=== PATIENT | male | born 1975 | race Asian ===

== ENCOUNTER 2017-03-05 22:05 | Emergency (ER) | payer MEDICAID ==
[2017-03-05 22:24] VITALS: BP 118/75
[2017-03-05] MEDS ORDERED: TETANUS/DIPHTHERIA/PERTUSSIS 0.5 ML SYRINGE IM ONE ×2 (22:44→22:46)
--- NOTE | 2017-03-05 22:52 | ED Physician Documentation ---
PD HPI LOWER EXT INJURY - Stated complaint Stated Complaint: RT LE PAIN - Chief complaint Chief Complaint: Ext Problem - History obtained from History obtained from: Patient - History of Present Illness PD HPI LOW EXT INJURY LOCATION: Right (2 days ago cut himself on a broken mirror hand has a laceration that was repaired at [facility]. She doesn't know when his last tetanus shot was and he was not updated at the time. He complains mostly of swelling distal to the wound and being insensate distal to the wound.) Review of Systems Constitutional: denies: Fever, Chills Cardiac: denies: Chest pain / pressure, Palpitations Respiratory: denies: Dyspnea, Cough PD PAST MEDICAL HISTORY - Past Medical History GI: GERD Musculoskeletal: Chronic back pain - Past Surgical History Past Surgical History: No - Present Medications Home Medications: Ambulatory Orders Medication Instructions Recorded Confirmed Oxycodone HCl/Acetaminophen 1 - 2 each PO Q6H PRN #14 tablet 11/25/14 06/17/16 [Percocet 5-325 mg Tablet] Gabapentin 300 mg PO TID 09/29/15 06/17/16 Methocarbamol 500 mg PO DAILY 09/29/15 06/17/16 Omeprazole 20 mg PO DAILY 06/17/16 06/17/16 Cephalexin [Keflex] 500 mg PO QID #40 capsule 03/05/17 - Allergies Allergies/Adverse Reactions: Allergies Allergy/AdvReac Type Severity Reaction Status Date / Time No Known Drug Allergies Allergy Verified 06/17/16 20:05 - Social History Does the pt smoke?: Yes Smoking Status: Current every day smoker Does the pt drink ETOH?: No Does the pt have substance abuse?: Yes - Immunizations Immunizations are current?: No - POLST Patient has POLST: No PD ED PE NORMAL - Vitals Vital signs reviewed: Yes - General General: Alert and oriented X 3, No acute distress - Neuro Neuro: Alert and oriented X 3, Normal speech - Psych Psych: Normal mood, Normal affect PD ED PE EXPANDED - Extremities SHASHA LE visual: 1 - laceration (3 cm sutured laceration) 2 - swelling (not completely insensate but pressure only in this area) 3 - swelling (normal motor function) Results - Vitals Vitals: Vital Signs - 24 hr 03/05/17 22:20 Temperature 37 C Heart Rate 67 Respiratory 17 Rate Blood Pressure 118/75 O2 Saturation 97 Oxygen O2 Source Room air PD MEDICAL DECISION MAKING - ED course ED course: He presents with a laceration of the leg with what looks like a saphenous nerve injury. The case was discussed by phone with Dr. Vargas, the on-call orthopedist who felt that this is not merit operative intervention and likely recover function on his own especially since there is no motor component. Tetanus was updated. Departure - Departure Disposition: Home, Self Care Clinical Impression: Nerve injury Leg laceration Qualifiers: Encounter type: initial encounter Laterality: right Qualified Code(s): S81.811A - Laceration without foreign body, right lower leg, initial encounter Condition: Good Record reviewed to determine appropriate education?: Yes Instructions: ED Laceration Ext Sutr Stap Tape Prescriptions: Cephalexin [Keflex] 500 mg PO QID #40 capsule Comments: Call your doctor to arrange a follow up appointment. Make the next available appointment. In the interim return anytime if worse or if new symptoms develop. Wash the wound briefly but in general keep it dry and covered. Come back for any signs of infection which would include: Redness, swelling, drainage, increased pain, or fevers. Followup with your doctor in 9 days for suture removal.
[2017-03-05] MEDS ORDERED: CEPHALEXIN 250 MG CAPSULE PO STA (22:54)
[2017-03-05] MEDS ORDERED: CEPHALEXIN 250 MG CAPSULE PO ONE (22:55)
== END 2017-03-05 23:01 | disposition home or self-care (01) ==
LOC: ED 22:05
DX: S84.80 Injury of other nerves at lower leg level (principal); S81.811D Laceration without foreign body, right lower leg, subsequent encounter; W45.8XXD Other foreign body or object entering through skin, subsequent encounter; Z23 Encounter for immunization; F17.200 Nicotine dependence, unspecified, uncomplicated
CPT/HCPCS: 90471; 90715; 99283; A9270

== ENCOUNTER 2017-03-11 20:10 | Emergency (ER) | payer MEDICAID | END 2017-03-11 20:49 | disposition home or self-care (01) | DX: S81.811A Laceration without foreign body, right lower leg, initial encounter (principal); X58.XXXA Exposure to other specified factors, initial encounter; Y92.410 Unspecified street and highway as the place of occurrence of the external cause; F17.200 Nicotine dependence, unspecified, uncomplicated ==

== ENCOUNTER 2017-03-19 00:58 | Emergency (ER) | payer MEDICAID ==
[2017-03-19 01:04] VITALS: BP 100/61
--- NOTE | 2017-03-19 01:27 | ED Physician Documentation ---
PD HPI WOUND RECHECK - Stated complaint Stated Complaint: RT LEG WOUND - Chief complaint Chief Complaint: Laceration - Histroy obtained from History obtained from: Patient - History of Present Illness Location: Right Lower Extremity (medial calf) Timing - onset: How many weeks ago (3) Pain level max: 0 Pain level now: 0 Associated symptoms: Redness, Swelling, Drainage (clear, yellow). No: Fever Similar symptoms before: Diagnosis (laceration) Recently seen: Emergency Dept (x2 for same) Review of Systems Constitutional: denies: Fever, Chills GI: denies: Nausea, Vomiting, Diarrhea Skin: denies: Rash Musculoskeletal: denies: Neck pain, Back pain Neurologic: denies: Headache PD PAST MEDICAL HISTORY - Past Medical History Past Medical History: Yes GI: GERD Musculoskeletal: Chronic back pain - Past Surgical History Past Surgical History: No - Present Medications Home Medications: Ambulatory Orders Medication Instructions Recorded Confirmed Oxycodone HCl/Acetaminophen 1 - 2 each PO Q6H PRN #14 tablet 11/25/14 06/17/16 [Percocet 5-325 mg Tablet] Gabapentin 300 mg PO TID 09/29/15 06/17/16 Methocarbamol 500 mg PO DAILY 09/29/15 06/17/16 Omeprazole 20 mg PO DAILY 06/17/16 06/17/16 Cephalexin [Keflex] 500 mg PO QID #40 capsule 03/05/17 - Allergies Allergies/Adverse Reactions: Allergies Allergy/AdvReac Type Severity Reaction Status Date / Time No Known Drug Allergies Allergy Verified 03/19/17 01:01 - Living Situation Living Situation: reports: With family Living Arrangement: reports: At home - Social History Does the pt smoke?: Yes Smoking Status: Current every day smoker Does the pt drink ETOH?: No Does the pt have substance abuse?: Yes - Immunizations Immunizations are current?: No - POLST Patient has POLST: No PD ED PE NORMAL - Vitals Vital signs reviewed: Yes - General General: Alert and oriented X 3, No acute distress - Derm Derm: Warm and dry - Extremities Extremities: Other (medial R calf - mild wound dehiscence with serosanguinous drainage. no cellulitis. no purulence. no abscess. ) - Neuro Neuro: Alert and oriented X 3 - Psych Psych: Normal mood, Normal affect Results - Vitals Vitals: Vital Signs - 24 hr 03/19/17 01:01 Temperature 36.0 C L Heart Rate 59 L Respiratory 16 Rate Blood Pressure 100/61 O2 Saturation 97 Oxygen O2 Source Room air PD MEDICAL DECISION MAKING - ED course Complexity details: reviewed old records, considered differential, d/w patient, d/w family ED course: Patient is a 41-year-old male with a slowly healing wound to the right medial calf. Serosanguineous drainage. No evidence of infection. Mepitel was placed over the wound and dressing applied over this recommend he follow-up with his doctor to be referred to wound care as this may have to heal by secondary intention. Patient and family counseled regarding signs and symptoms for which I believe and urgent re-evaluation would be necessary. Patient with good understanding of and agreement to plan and is comfortable going home at this time This document was made in part using voice recognition software. While efforts are made to proofread this document, sound alike and grammatical errors may occur. Departure - Departure Disposition: 01 Home, Self Care Clinical Impression: Encounter for wound re-check Condition: Good Instructions: ED Wound Care Follow-Up: Jaye Bang ARNP [Primary Care Provider] - Within 3 Days Comments: Ask Jaye Bang for a referral to the [facility] for wound care. Change the gauze whenever it becomes wet. Let it dry to the air whenever possible. Leave the mepitel for 1 week. Return if you worsen. Discharge Date/Time: 03/19/17 01:35
== END 2017-03-19 01:35 | disposition home or self-care (01) ==
LOC: ED 00:58
DX: T81.33XA Disruption of traumatic injury wound repair, initial encounter (principal); K21.9 Gastro-esophageal reflux disease without esophagitis; F17.200 Nicotine dependence, unspecified, uncomplicated
CPT/HCPCS: 99282; 99283

== ENCOUNTER 2017-08-20 02:00 | Emergency (ER) | payer MEDICAID ==
--- NOTE | 2017-08-20 02:46 | ED Physician Documentation ---
PD HPI HEENT - Stated complaint Stated Complaint: DENTAL PAIN,SWELLING - Chief complaint Chief Complaint: Heent - History obtained from History obtained from: Patient - History of Present Illness Timing - onset: Yesterday Timing - details: Gradual onset Pain level now: 8 Location: Tooth Improves: Nothing Worsens: Other (palpation) Associated symptoms: Facial swelling. No: Fever, Unable to swallow Recently seen: Other (dentist) - Additional information Additional information: c/o dental pain left lower teeth x 1-2 days, saw dentist yesterday and was prescribed ibuprofen and amoxicillin (he has had two doses thus far, although he says he took two tablets as initial dose). He says he did not have any significant swelling at the time of the dental visit but subsequently has developed swelling in the area of the pain as well as on the left side of his jaw Review of Systems Constitutional: denies: Fever, Chills, Sweats Throat: reports: Dental pain / toothache Musculoskeletal: denies: Neck pain PD PAST MEDICAL HISTORY - Past Medical History Past Medical History: Yes GI: GERD Musculoskeletal: Chronic back pain - Past Surgical History Past Surgical History: Yes - Present Medications Home Medications: Ambulatory Orders Medication Instructions Recorded Confirmed Amoxicillin 1 cap PO TID 08/20/17 08/20/17 Clindamycin HCl 300 mg PO Q6HR 10 Days #39 capsule 08/20/17 Ibuprofen 1 tab PO TID PRN 08/20/17 08/20/17 oxyCODONE/ACET 5/325 [Percocet 5 1 - 2 each PO Q6H PRN #20 tablet 08/20/17 mg/325 mg] - Allergies Allergies/Adverse Reactions: Allergies Allergy/AdvReac Type Severity Reaction Status Date / Time No Known Drug Allergies Allergy Verified 08/20/17 02:03 - Social History Does the pt smoke?: Yes Smoking Status: Current every day smoker Does the pt drink ETOH?: No Does the pt have substance abuse?: Yes - Immunizations Immunizations are current?: Yes - POLST Patient has POLST: No PD ED PE NORMAL - Vitals Vital signs reviewed: Yes - General General: Alert and oriented X 3, Well developed/nourished, Other (appears to be in mild-moderate painful discomfort) - HEENT HEENT: Moist mucous membranes - Neck Neck: Supple, no meningeal sign PD ED PE EXPANDED - HEENT HEENT Visual: 1 - swelling (swelling, tenderness of gingiva adjacent to left mandibular second premolar and first molar), tenderness 2 - swelling (mild-moderate left mandibular swelling and tenderness without erythema, fluctuance, or palpable margins to suggest discrete abscess), tenderness Results - Vitals Vitals: Vital Signs - 24 hr 08/20/17 08/20/17 08/20/17 02:04 04:03 05:45 Temperature 36.3 C L 36.9 C 36.8 C Heart Rate 59 L 48 L 82 Respiratory 18 16 18 Rate Blood Pressure 126/75 108/73 117/71 O2 Saturation 98 99 98 Oxygen O2 Source Room air - Rads (name of study) CT facial bones with IV contrast Radiology: Prelim report reviewed, See rad report PD MEDICAL DECISION MAKING - ED course Complexity details: reviewed results, re-evaluated patient, considered differential, d/w patient ED course: CT does not reveal abscess, and thus treatment in ED at this time limited to pain control (patient reported good relief with IV dilaudid 0.5mg x 1 dose) and antibiotics (clindamycin IV and rx). I emphasized importance of immediate follow -up and return to ED if worse in any way. Departure - Departure Disposition: 01 Home, Self Care Clinical Impression: Dental infection Condition: Good Instructions: ED Abscess Tooth Prescriptions: Clindamycin HCl 300 mg PO Q6HR 10 Days #39 capsule oxyCODONE/ACET 5/325 [Percocet 5 mg/325 mg] 1 - 2 each PO Q6H PRN #20 tablet PRN Reason: Pain Comments: Contact the dentist this morning to arrange for immediate follow-up. I recommend stopping the amoxicillin and taking the clindamycin instead. Discharge Date/Time: 08/20/17 05:47
[2017-08-20] MEDS ORDERED: HYDROmorphone 0.5 MG/0.5 ML SYRINGE IVP STA (03:21)
[2017-08-20] MEDS ORDERED: CLINDAMYCIN 600 MG/50 ML 50 ML IV STA (03:22)
[2017-08-20] MEDS ORDERED: IOPAMIDOL-300 100 ML VIAL ONE (03:35)
[2017-08-20] MEDS ORDERED: CLINDAMYCIN 600 MG/50 ML 50 ML IV ONE (03:42)
[2017-08-20] MEDS ORDERED: HYDROmorphone 1 MG/ML SYRINGE ONE (03:46)
[2017-08-20] MEDS ORDERED: IOPAMIDOL-300 100 ML VIAL IVP ONE (04:01)
[2017-08-20] MEDS ORDERED: diphenhydrAMINE INJ 50 MG/ML VIAL IVP STA (04:11)
[2017-08-20] MEDS ORDERED: diphenhydrAMINE INJ 50 MG/ML VIAL ONE (04:18)
--- NOTE | 2017-08-20 04:37 | CT Preliminary Report ---
Exam: CT FACIAL BONES W/ IMPRESSION: Findings consistent with left facial cellulitis without evidence of abscess. Findings pot entially related to dental infection, consider the left mandibular second premolar and first molar as a potential source. [facility] SITE ID: [id number]
--- NOTE | 2017-08-20 04:40 | CT Report ---
EXAM: CT MAXILLOFACIAL WITH CONTRAST EXAM DATE: 08/20/2017 04:04 AM. CLINICAL HISTORY: Left jaw swelling. COMPARISONS: None. TECHNIQUE: Thin-section axial images were acquired of the face after administration of intravenous co ntrast. IV contrast: 80 cc Isovue 300. Post-processing: Coronal and sagittal reformats. Other: None. In accordance with CT protocol optimization, one or more of the following dose reduction techniques w ere utilized for this exam: automated exposure control, adjustment of mA and/or KV based on patient s ize, or use of iterative reconstructive technique. FINDINGS: Soft Tissue: Ill-defined soft tissue swelling is seen over the left mandible. A well-circumscribed fl uid collection amenable to drainage is not identified. There is prominent periapical lucency seen abo ut the second left premolar and first molar teeth. These teeth are grossly carious. Orbits:Symmetric and unremarkable. Bones: No fracture. Temporomandibular Joints: The temporomandibular joints are symmetric and normally located. Sinuses: Normal. No mucosal thickening or fluid levels. Glands: The parotid and submandibular glands are unremarkable. Other: None. IMPRESSION: Findings consistent with left facial cellulitis without evidence of abscess. Findings pot entially related to dental infection, consider the left mandibular second premolar and first molar as a potential source. [facility] Referring Provider Line: [phone] SITE ID: [id number]
[2017-08-20] MEDS ORDERED: oxyCODONE/ACET 5/325 Prepack 4 PO STA (05:23)
[2017-08-20] MEDS ORDERED: oxyCODONE/ACET 5/325 Prepack 4 PO ONE (05:39)
[2017-08-20 05:47] VITALS: BP 117/71
== END 2017-08-20 05:47 | disposition home or self-care (01) ==
LOC: ED 02:00
DX: K04.7 Periapical abscess without sinus (principal); K21.9 Gastro-esophageal reflux disease without esophagitis; F17.200 Nicotine dependence, unspecified, uncomplicated
CPT/HCPCS: 36415; 70487; 96365; 96375; 99283; J1170; Q9967

== ENCOUNTER 2021-06-28 20:21 | Emergency (ER) | payer MEDICAID ==
--- NOTE | 2021-06-28 20:45 | ED Physician Documentation ---
PD HPI MALE - Stated complaint Stated Complaint: ABD PX/UNABLE TO URINTAE - Chief complaint Chief Complaint: Abd Pain - History obtained from History obtained from: Patient - History of Present Illness Timing - onset: Today (this morning about 10 am, noted having discomfort and pressure for urination. Only getting dribbles out. Now no urination for past 2-3 hours and feels bladder fullness. No prior similar symptoms.) Timing - details: Abrupt onset, Still present Associated symptoms: Unable to urinate. No: Hematuria, Discharge, Genital sore / lesion PD HPI MALE CONTRIB FACTORS: Other (he states he has trouble urinating at times when uses meth; he had had some meth last evening.). No: Sexually active, Exposed to STD Similar symptoms before: Has not had sx before Recently seen: Clinic (seen recently PCP for dental infection and on antibiotic the past few days. No pain meds.) Review of Systems Constitutional: denies: Fever, Chills Nose: denies: Rhinorrhea / runny nose, Congestion Throat: denies: Sore throat Respiratory: denies: Cough PD PAST MEDICAL HISTORY - Past Medical History Endocrine/Autoimmune: None GI: GERD : None Musculoskeletal: Chronic back pain - Past Surgical History Past Surgical History: Yes - Present Medications Home Medications: Ambulatory Orders Medication Instructions Recorded Confirmed Amoxicillin 1 cap PO TID 08/20/17 08/20/17 Clindamycin HCl [Clindamycin 300MG 300 mg PO Q6HR 10 Days #39 capsule 08/20/17 CAP] Ibuprofen 1 tab PO TID PRN 08/20/17 08/20/17 oxyCODONE/ACET 5/325 [Percocet 5 1 - 2 each PO Q6H PRN #20 tablet 08/20/17 mg/325 mg] - Allergies Allergies/Adverse Reactions: Allergies Allergy/AdvReac Type Severity Reaction Status Date / Time No Known Drug Allergies Allergy Verified 06/28/21 20:31 - Social History Does the pt smoke?: Yes Smoking Status: Current every day smoker Does the pt drink ETOH?: No Does the pt have substance abuse?: Yes - Immunizations Immunizations are current?: Yes - POLST Patient has POLST: No PD ED PE NORMAL - Vitals Vital signs reviewed: Yes - General General: Alert and oriented X 3, No acute distress (though slightly anxious), Well developed/nourished - Neck Neck: Supple, no meningeal sign, No adenopathy - Cardiac Cardiac: RRR, No murmur - Respiratory Respiratory: Clear bilaterally - Abdomen Abdomen: Normal bowel sounds, Soft, Non tender, Other (moderate bladder fullness. ) - Male Male : Deferred - Rectal Rectal: Deferred - Back Back: No CVA TTP - Derm Derm: Normal color, Warm and dry Results - Vitals Vitals: Vital Signs - 24 hr 06/28/21 06/28/21 20:31 21:40 Temperature 37.7 C Heart Rate 97 90 Respiratory 17 16 Rate Blood Pressure 136/77 H 133/80 H O2 Saturation 97 96 Oxygen O2 Source Room air PD MEDICAL DECISION MAKING - ED course Complexity details: considered differential (Presume meth related urinary retention. Unlikely to be related to dental infection or antibiotic. Bladder scanner showed over 250 mL and he had just tried urinating. We were going to do a Bhakta but he then was able to urinate 400 mL.), d/w patient Departure - Departure Disposition: 01 Home, Self Care Clinical Impression: Acute urinary retention Condition: Stable Record reviewed to determine appropriate education?: Yes Follow-Up: Jaye Bang ARNP [Primary Care Provider] - Comments: You likely had a urinary outlet bladder spasm related to the meth use. You seem to be able to void now. Stay well-hydrated. You can use the Pyridium if needed for discomfort. Tylenol if needed for pains. Discharge Date/Time: 06/28/21 21:41
[2021-06-28] MEDS ORDERED: LIDOCAINE 2% URO-JET 5 ML SYRINGE UR STA (21:01)
[2021-06-28] MEDS ORDERED: PHENAZOPYRIDINE 100 MG TABLET PO STA (21:17)
[2021-06-28] MEDS ORDERED: PHENAZOPYRIDINE 100 MG TABLETS (Prepack) PO PRN (21:26)
[2021-06-28 21:42] VITALS: BP 133/80
== END 2021-06-28 21:41 | disposition home or self-care (01) ==
LOC: ED 20:21
DX: R33.9 Retention of urine, unspecified (principal); F17.200 Nicotine dependence, unspecified, uncomplicated
CPT/HCPCS: 51798; 99282; A9270

== ENCOUNTER 2022-04-07 03:49 | Emergency (ER) | payer MEDICAID ==
[2022-04-07 03:55] VITALS: BP 144/94
--- NOTE | 2022-04-07 04:04 | ED Physician Documentation ---
PD HPI SKIN - Stated complaint Stated Complaint: LT ARM PIT PX - Chief complaint Chief Complaint: Wound - History obtained from History obtained from: Patient - History of Present Illness Timing - onset: How many days ago (3) Timing - duration: Days (3) Timing - details: Gradual onset, Still present (much worse the past half day) Location: LUE (axillary area, with small red bump initially, and now a larger firm tender lump adjacent.) Quality / character: Painful, Discolored (red), Raised, Swelling. No: Draining Associated symptoms: No: Fever, N/V/D Similar symptoms before: Diagnosis (abscess in other armpit treated with abx and did not need I&D, several months ago.) Recently seen: Clinic (about a month ago, seen for narcotic addiction and Rx short term Suboxone to ease withdrawal. Denies current opioid use.) Review of Systems Constitutional: denies: Fever, Chills, Myalgias Neurologic: reports: Numbness (some feeling of tingling down little/ring fing ers.). denies: Focal weakness PD PAST MEDICAL HISTORY - Past Medical History Cardiovascular: None Respiratory: None Endocrine/Autoimmune: None GI: GERD : None Musculoskeletal: Chronic back pain - Past Surgical History Past Surgical History: Yes - Present Medications Home Medications: Ambulatory Orders Medication Instructions Recorded Confirmed Amoxicillin 1 cap PO TID 08/20/17 08/20/17 Clindamycin HCl [Clindamycin 300MG 300 mg PO Q6HR 10 Days #39 capsule 08/20/17 CAP] Ibuprofen 1 tab PO TID PRN 08/20/17 08/20/17 oxyCODONE/ACET 5/325 [Percocet 5 1 - 2 each PO Q6H PRN #20 tablet 08/20/17 mg/325 mg] Ibuprofen [Motrin] 600 mg PO TID PRN #20 tab 04/07/22 cephALEXin [Keflex] 500 mg PO TID #20 cap 04/07/22 - Allergies Allergies/Adverse Reactions: Allergies Allergy/AdvReac Type Severity Reaction Status Date / Time No Known Drug Allergies Allergy Verified 04/07/22 03:56 - Social History Does the pt smoke?: Yes Smoking Status: Current every day smoker Does the pt drink ETOH?: No Does the pt have substance abuse?: Yes - Immunizations Immunizations are current?: Yes - POLST Patient has POLST: No PD ED PE NORMAL - Vitals Vital signs reviewed: Yes - General General: Alert and oriented X 3, Well developed/nourished - Neck Neck: Supple, no meningeal sign, No adenopathy - Cardiac Cardiac: RRR, No murmur - Respiratory Respiratory: Clear bilaterally - Derm Derm: Warm and dry, Other (The left axilla shows a under 1 cm rounded lump without notable fluid collection that is raised and red and tender. Adjacent to it is a 2 cm raised tender firm lump under the skin with redness of the skin and surrounding. Bedside ultrasound showed architecture of it consistent with lymph node.) Results - Vitals Vitals: Vital Signs - 24 hr 04/07/22 03:52 Temperature 36.8 C Heart Rate 78 Respiratory 16 Rate Blood Pressure 144/94 H O2 Saturation 100 Oxygen O2 Source Room air PD MEDICAL DECISION MAKING - ED course Complexity details: reviewed old records ([facility]) Departure - Departure Disposition: 01 Home, Self Care Clinical Impression: Acute axillary lymphadenitis Condition: Stable Record reviewed to determine appropriate education?: Yes Prescriptions: cephALEXin [Keflex] 500 mg PO TID #20 cap Ibuprofen [Motrin] 600 mg PO TID PRN #20 tab PRN Reason: Pain Comments: Warm moist compresses to the area to improve blood flow and help promote in fection fighting. This looks to be an infected lymph node (swollen gland). It I did not see a drainable abscess on bedside ultrasound at this time. It may accumulate into a fluid collection that might need subsequent draining though less likely. We can treat this with cephalexin antibiotic 4 times daily for the next 5 to 6 days. Additionally use some ibuprofen 3 times daily with food to help with pain and and swelling. Recheck if not improving well over the next several days. I transmitted your prescription to a [facility] in [place] at your request. Discharge Date/Time: 04/07/22 04:32
[2022-04-07] MEDS ORDERED: cephALEXin 250 MG CAPSULE PO STA (04:17)
[2022-04-07] MEDS ORDERED: IBUPROFEN 600 MG TABLET PO STA (04:17)
[2022-04-07] MEDS ORDERED: ACETAMINOPHEN 325 MG TABLET PO STA (04:18)
[2022-04-07] MEDS ORDERED: CEPHALEXIN 250 MG Prepack 8 CAP BOTTLE PO STA (04:19)
== END 2022-04-07 04:32 | disposition home or self-care (01) ==
LOC: ED 03:49
DX: L04.2 Acute lymphadenitis of upper limb (principal); F17.200 Nicotine dependence, unspecified, uncomplicated
CPT/HCPCS: 99282; A9270

== ENCOUNTER 2022-07-09 05:22 | Outpatient (CLI) | payer MEDICAID | END 2022-07-09 05:23 | disposition critical access hospital (66) | LOC: EMS 05:22 | DX: R46.89 Other symptoms and signs involving appearance and behavior (principal); R39.9 Unspecified symptoms and signs involving the genitourinary system; R45.1 Restlessness and agitation | CPT/HCPCS: A0425; A0429; A0999 ==

== ENCOUNTER 2022-07-09 05:45 | Emergency (ER) | payer MEDICAID ==
[2022-07-09] MEDS ORDERED: BUPRENORPHINE 0.3 MG/ML VIAL IM ONE ×2 (05:50→06:35)
[2022-07-09] MEDS ORDERED: ONDANSETRON ODT 4 MG TABLET TL STA (05:51)
[2022-07-09] MEDS ORDERED: cloNIDine 0.1 MG TABLET PO STA (05:52)
[2022-07-09] MEDS ORDERED: PHENAZOPYRIDINE 100 MG TABLET PO STA (05:52)
--- OUTSIDE RECORDS SUMMARY | 2022-07-09 05:56 | EXTERNAL MEDICAL SUMMARY RPT | Continuity of Care Document ---
:1975 Author Organization [facility] Address [address] [place] [address] Phone Care Team Providers Name Role Phone Unavailable Unavailable Unavailable Gio Sorto Pa-C Unavailable Unavailable Allergies No information. Encounters No information. Functional Status No information. Immunizations No information. Medications date description facility [id number]+0000 cephalexin [facility] C mumtaz [phone]+0000 cephalexin [facility] [place] mum[place] [phone]+0000 cephalexin [facility] C mum[place] [phone]+0000 cephalexin [facility] C mum[place] [phone]+0000 ondansetron [facility] C mum[place]z [phone]+0000 ondansetron [facility] C mum[place]z [phone]+0000 ondansetron [facility] C mum[place]z [phone]+0000 amoxicillin-pot clavulanate Walk[facility]In [facility] C mumtaz [phone]+0000 amoxicillin-pot clavulanate Walk[facility]In [facility] C mumtaz [phone]+0000 naloxone [facility] [place] mum[place] [phone]+0000 naloxone [facility] C mum[place] [phone]+0000 naloxone [facility] C mum[place]z [phone]+0000 amoxicillin-pot clavulanate Walk[facility] C mumtaz [phone]+0000 cephalexin [facility] C mum[place] [phone]+0000 cephalexin [facility] [place] mum[place] [phone]+0000 cephalexin [facility] C mum[place] [phone]+0000 levofloxacin [facility] [place] mum[place] [phone]+0000 levofloxacin [facility] C mum[place] [phone]+0000 buprenorphine-naloxone [facility] [place] [phone]+0000 buprenorphine-naloxone [facility] [place] mum[place] [phone]+0000 buprenorphine-naloxone [facility] [place] mum[place] [phone]+0000 ondansetron [facility] C mum[place] [phone]+0000 ondansetron [facility] mum[facility] [phone]+0000 ondansetron [facility] mum[facility] [phone]+0000 ibuprofen [facility] [place] mum[place] [phone]+0000 ibuprofen [facility] C mum[place] [phone]+0000 buprenorphine-naloxone [facility] [place] [phone]+0000 buprenorphine-naloxone [facility] [place] mum[place] [phone]+0000 buprenorphine-naloxone [facility] mum[place] [phone]+0000 buprenorphine-naloxone [facility] mum[place] [phone]+0000 buprenorphine-naloxone [facility] C mum[place]z [phone]+0000 naloxone [facility] C mum[place] [phone]+0000 naloxone [facility] C mum[place] [phone]+0000 naloxone [facility] C mumtaz [phone]+0000 naloxone [facility] C mum[place] [phone]+0000 naloxone [facility] C mum[place]z [phone]+0000 cephalexin [facility] C mum[place]z [phone]+0000 ibuprofen [facility] C mum[place] [phone]+0000 ibuprofen [facility] C mum[place] [phone]+0000 ibuprofen [facility] mum[place] [phone]+0000 cephalexin [facility] [place] [phone]+0000 cephalexin [facility] mum[facility] [phone]+0000 cephalexin [facility] mum[place] [phone]+0000 cephalexin [facility] mumtaz [phone]+0000 cephalexin [facility] C mum[place] [phone]+0000 cephalexin [facility] C mum[place] [phone]+0000 levofloxacin [facility] [place] mum[place] [phone]+0000 levofloxacin [facility] [place] [phone]+0000 levofloxacin [facility] [place] [phone]+0000 ondansetron [facility] mum[place] [phone]+0000 ondansetron [facility] mumta[facility] [phone]+0000 levofloxacin [facility] [place] [phone]+0000 levofloxacin [facility] C mum[place] [phone]+0000 levofloxacin [facility] C mum[place] [phone]+0000 amoxicillin-pot clavulanate [facility] C ummtaz [phone]+0000 amoxicillin-pot clavulanate [facility] C mum[place] [phone]+0000 ondansetron [facility] C mum[place] [phone]+0000 ondansetron [facility] mum[place] [phone]+0000 ibuprofen [facility] [place] [phone]+0000 ibuprofen [facility] [place] [phone]+0000 ibuprofen [facility] [place] mum[place] [phone]+0000 buprenorphine-naloxone [facility] [place] [phone]+0000 buprenorphine-naloxone [facility] [place] [phone]+0000 ibuprofen [facility] C mum[place] [phone]+0000 ibuprofen [facility] C mum[place] [phone]+0000 levofloxacin [facility] C mum[place] [phone]+0000 levofloxacin [facility] C mum[place]z [phone]+0000 amoxicillin-pot clavulanate Walk[facility] C mum[place] [phone]+0000 naloxone [facility] C mum[place] [phone]+0000 naloxone [facility] Melodie pandya Problems No information. Procedures date description facility [id number]+0000 Visit Code Hold [facility] Jose [phone]+0000 Visit Code Hold [facility] [place] [phone]+0000 Visit Code Hold [facility] Jose Results/Labs No information. Social History date description facility [id number]+0000 Current every day smoker Walk-In [facility] Melodie pandya [phone]+0000 Current every day smoker Walk[facility] Melodie pandya Vital Signs date measurement value units [id number]+0000 BMI BMI 22.01 kg/m2 39883477813681+0000 BP_diastolic BP_diastolic 88 mm[H g] 25496228259990+0000 BP_systolic BP_systolic 140 mm[Hg] 71212084025708+0000 heart_rate heart_rate 67 /min 42384076311968+0000 height_metric height_metric 170.18 cm [id number]+0000 height_standard height_standard 67 in [id number]+0000 respiration_rate respiration_rate 16 /min 10528247139920+0000 temperature_metric temperature_metric 37.06 C [id number]+0000 temperature_standard temperature_standard 9 8.7 F [id number]+0000 weight_metric weight_metric 63.5 kg [id number]+0000 weight_standard weight_standard 140 lb 72723172562032+0000 BMI BMI 21.22 kg/m2 91913412688874+0000 BP_diastolic BP_diastolic 86 mmHg 65206799482176+0000 BP_systolic BP_systolic 134 mmHg 22581622612268+0000 heart_rate heart_rate 98 /min 54054162734936+0000 height_metric height_metric 170.18 cm 46386461932318+0000 height_standard height_standard 67 in 37119962385216+0000 respiration_rate respiration_rate 18 /min 53690505018865+0000 temperature_metric temperature_metric 36.5 C 18794282552582+0000 temperature_standard temperature_standard 9 7.7 F 58130761122034+0000 weight_metric weight_metric 61.23 kg 59621592644850+0000 weight_standard weight_standard 135 lb
[2022-07-09 06:12] LABS: BASOPHILS % (AUTO) 0.3 %; EOSINOPHILS # (AUTO) 0.1 10^3/uL (0.0-0.7); EOSINOPHILS % (AUTO) 2.2 %; HCT - HEMATOCRIT 46.5 % (42.0-52.0); HGB - HEMOGLOBIN 16.1 g/dL (14.0-18.0); LYMPHOCYTES % (AUTO) 16.2 %; MEAN CORPUSCULAR HEMOGLOBIN 30.9 pg (27.0-31.0); MEAN CORPUSCULAR HGB CONC 34.6 g/dL (32.0-36.0); MEAN CORPUSCULAR VOLUME 89.3 fL (80.0-94.0); MEAN PLATELET VOLUME 8.4 fL (7.4-11.4); MONOCYTES # (AUTO) 0.9 10^3/uL (0.0-1.0); MONOCYTES % (AUTO) 14.8 %; NEUTROPHILS # (AUTO) 3.9 10^3/uL (1.5-6.6); NEUTROPHILS % (AUTO) 66.3 %; PLT - PLATELET COUNT 441 10^3/uL (130-450); RED BLOOD COUNT 5.21 10^6/uL (4.70-6.10); RED CELL DISTRIBUTION WIDTH 11.9 % (12.0-15.0); WHITE BLOOD COUNT 5.9 x10^3/uL (4.8-10.8)
[2022-07-09 06:22] LABS: ALBUMIN 4.3 g/dL (3.2-5.5); ALBUMIN/GLOBULIN RATIO 1.2 (1.0-2.2); BILIRUBIN,TOTAL 0.6 mg/dL (0.2-1.0); CALCIUM 9.1 mg/dL (8.5-10.3); CREATININE 0.9 mg/dL (0.6-1.2); MAGNESIUM 1.9 mg/dL (1.7-2.8); POTASSIUM 3.8 mmol/L (3.5-5.0); TOTAL PROTEIN 7.9 g/dL (6.7-8.2)
[2022-07-09] MEDS ORDERED: cloNIDine 0.1 MG TABLET ONE (06:39)
[2022-07-09 07:13] LABS: MUDS CUTOFF CONCENTRATIONS CUTOFF CONC BELOW:
[2022-07-09 07:14] LABS: BILIRUBIN,URINE SMALL (NEGATIVE); GLUCOSE, URINE (UA) NEGATIVE (NEGATIVE); LEUKOCYTE ESTERASE, URINE NEGATIVE (NEGATIVE); OCCULT BLOOD,URINE TRACE-INTA (NEGATIVE); UROBILINOGEN,URINE 1 (NORMAL) E.U./dL (NORMAL)
[2022-07-09 07:22] LABS: CLARITY,URINE CLEAR (CLEAR)
[2022-07-09 07:23] LABS: ICTOTEST,URINE POS
[2022-07-09 07:26] LABS: AMPHETAMINE SCREEN,URINE POSITIVE (NEGATIVE); BARBITURATE SCREEN,UR NEGATIVE (NEGATIVE); BENZODIAZEPINES SCREEN, URINE NEGATIVE (NEGATIVE); COCAINE SCREEN URINE NEGATIVE (NEGATIVE); METHADONE SCREEN, URINE NEGATIVE (NEGATIVE); METHAMPHETAMINES SCREEN, URINE POSITIVE (NEGATIVE); OPIATE SCREEN, URINE NEGATIVE (NEGATIVE); OXYCODONE SCREEN, URINE NEGATIVE (NEGATIVE); PROPOXYPHENE SCREEN, URINE NEGATIVE (NEGATIVE); THC CANNABINOID SCREEN, URINE POSITIVE (NEGATIVE); TRICYCLIC ANTIDEPRESSANT,URINE NEGATIVE (NEGATIVE)
[2022-07-09 07:29] LABS: BACTERIA,URINE Few /HPF (None Seen); RBC,URINE 0-5 /HPF (0-5); SQUAMOUS EPITHELIAL CELL,UR RARE Squamous (<= Few); WBC,URINE 0-3 /HPF (0-3)
--- NOTE | 2022-07-09 07:47 | ED Physician Documentation ---
PD HPI ALTERED MENTAL STATUS - Stated complaint Stated Complaint: FENTANYL W/D - Chief complaint Chief Complaint: General - History obtained from History obtained from: Patient, EMS - History of Present Illness Timing - onset: Yesterday (Patient states he is regular heavy use of fentanyl and since was trying to stop 3 days ago. He had some symptoms then and used moderate amount. No fentanyl for the last 24 hours and having withdrawal today. He claims some mild meth use as well.) Timing - duration: Days (1-2) Timing - details: Gradual onset, Still present (worsened agitation, nausea and vomiting the longer without Fentanyl.) Quality / character: Confused, Agitated Associated symptoms: NVD. No: Headache, Dyspnea, Cough Contributing factors: No: Anticoagulated, Recent illness, Recent injury Basline status: Alert and oriented X 3, Ambulatory Similar symptoms before: Diagnosis (He has had fentanyl withdrawal in the past and been through detox several times. He is familiar with the symptoms.) Recently seen: Not recently seen Review of Systems Constitutional: denies: Fever Nose: denies: Rhinorrhea / runny nose, Congestion Throat: denies: Sore throat Respiratory: denies: Cough GI: reports: Nausea, Vomiting, Diarrhea. denies: Abdominal Pain : denies: Dysuria, Frequency Neurologic: reports: Generalized weakness. denies: Focal weakness, Numbness, Altered mental status, Headache PD PAST MEDICAL HISTORY - Past Medical History Cardiovascular: None Respiratory: None Endocrine/Autoimmune: None GI: GERD : None Musculoskeletal: Chronic back pain - Past Surgical History Past Surgical History: Yes - Present Medications Home Medications: Ambulatory Orders Medication Instructions Recorded Confirmed Amoxicillin 1 cap PO TID 08/20/17 08/20/17 Clindamycin HCl [Clindamycin 300MG 300 mg PO Q6HR 10 Days #39 capsule 08/20/17 CAP] Ibuprofen 1 tab PO TID PRN 08/20/17 08/20/17 oxyCODONE/ACET 5/325 [Percocet 5 1 - 2 each PO Q6H PRN #20 tablet 08/20/17 mg/325 mg] Ibuprofen [Motrin] 600 mg PO TID PRN #20 tab 04/07/22 cephALEXin [Keflex] 500 mg PO TID #20 cap 04/07/22 - Allergies Allergies/Adverse Reactions: Allergies Allergy/AdvReac Type Severity Reaction Status Date / Time No Known Drug Allergies Allergy Verified 07/09/22 05:50 - Social History Does the pt smoke?: Yes Smoking Status: Current every day smoker Does the pt drink ETOH?: No Does the pt have substance abuse?: Yes - Immunizations Immunizations are current?: Yes - POLST Patient has POLST: No PD ED PE NORMAL - Vitals Vital signs reviewed: Yes - General General: Alert and oriented X 3, Well developed/nourished, Other (Anxious and agitated and restless on the cart. He is able answer questions appropriately and is polite.) - HEENT HEENT: Atraumatic - Neck Neck: Supple, no meningeal sign, No bony TTP, No adenopathy - Cardiac Cardiac: RRR, No murmur - Respiratory Respiratory: Clear bilaterally - Abdomen Abdomen: Soft, Non tender, Non distended. No: Normal bowel sounds (increased) - Derm Derm: Normal color, Warm and dry - Extremities Extremities: Normal ROM s pain, No edema, No calf tenderness / cord - Neuro Neuro: Alert and oriented X 3, No motor deficit, Normal speech Results - Vitals Vitals: Vital Signs - 24 hr 07/09/22 07/09/22 05:48 06:27 Heart Rate 77 90 Respiratory 18 Rate Blood Pressure 125/94 H 132/95 H O2 Saturation 98 Oxygen O2 Source Room air - Labs Labs: Laboratory Tests 07/09/22 07/09/22 07/09/22 06:05 06:05 06:05 WBC 5.9 RBC 5.21 Hgb 16.1 Hct 46.5 MCV 89.3 MCH 30.9 MCHC 34.6 RDW 11.9 L Plt Count 441 MPV 8.4 Neut # (Auto) 3.9 Lymph # (Auto) 1.0 L Burt # (Auto) 0.9 Eos # (Auto) 0.1 Baso # (Auto) 0.0 Absolute Nucleated RBC 0.00 Nucleated RBC % 0.0 Sodium 131 L Potassium 3.8 Chloride 94 L Carbon Dioxide 24 Anion Gap 13.0 BUN 22 H Creatinine 0.9 Estimated GFR (MDRD) 91 Glucose 101 H Calcium 9.1 Magnesium 1.9 Total Bilirubin 0.6 AST 30 ALT 19 Alkaline Phosphatase 107 Total Creatine Kinase 196 Total Protein 7.9 Albumin 4.3 Globulin 3.6 Albumin/Globulin Ratio 1.2 Lipase 56 H Urine Color Urine Clarity Urine pH Ur Specific [place] Urine Protein Urine Glucose (UA) Urine Ketones Urine Occult Blood Urine Nitrite Urine Bilirubin Urine Urobilinogen Ur Leukocyte Esterase Urine RBC Urine WBC Ur Squamous Epith Cells Urine Bacteria Ur Microscopic Review Urine Culture Comments Urine Opiates Screen Ur Oxycodone Screen Urine Methadone Screen Ur Propoxyphene Screen Ur Barbiturates Screen Ur Tricyclics Screen Ur Phencyclidine Scrn Ur Amphetamine Screen U Methamphetamines Scrn U Benzodiazepines Scrn Urine Cocaine Screen U Cannabinoids Screen Ethyl Alcohol < 5.0 07/09/22 07:05 WBC RBC Hgb Hct MCV MCH MCHC RDW Plt Count MPV Neut # (Auto) Lymph # (Auto) Burt # (Auto) Eos # (Auto) Baso # (Auto) Absolute Nucleated RBC Nucleated RBC % Sodium Potassium Chloride Carbon Dioxide Anion Gap BUN Creatinine Estimated GFR (MDRD) Glucose Calcium Magnesium Total Bilirubin AST ALT Alkaline Phosphatase Total Creatine Kinase Total Protein Albumin Globulin Albumin/Globulin Ratio Lipase Urine Color DK. ORANGE Urine Clarity CLEAR Urine pH 6.0 Ur Specific [place] 1.015 Urine Protein Urine Glucose (UA) NEGATIVE Urine Ketones Urine Occult Blood TRACE-INTA Urine Nitrite Urine Bilirubin SMALL H Urine Urobilinogen 1 (NORMAL) Ur Leukocyte Esterase NEGATIVE Urine RBC 0-5 Urine WBC 0-3 Ur Squamous Epith Cells RARE Squamous Urine Bacteria Few Ur Microscopic Review INDICATED Urine Culture Comments NOT INDICATED Urine Opiates Screen NEGATIVE Ur Oxycodone Screen NEGATIVE Urine Methadone Screen NEGATIVE Ur Propoxyphene Screen NEGATIVE Ur Barbiturates Screen NEGATIVE Ur Tricyclics Screen NEGATIVE Ur Phencyclidine Scrn NEGATIVE Ur Amphetamine Screen POSITIVE H U Methamphetamines Scrn POSITIVE H U Benzodiazepines Scrn NEGATIVE Urine Cocaine Screen NEGATIVE U Cannabinoids Screen POSITIVE H Ethyl Alcohol PD MEDICAL DECISION MAKING - ED course Complexity details: re-evaluated patient (He seems to be symptomatically well improved with buprenorphine on as well as Zofran and Toradol. We will get basic labs and urine test to be able to medically clear him for detox evaluation. Consult social work.), considered differential, d/w patient Departure - Departure Clinical Impression: Opioid withdrawal, Substance abuse Nausea and vomiting Qualifiers: Vomiting type: unspecified Qualified Code(s): R11.2 - Nausea with vomiting, unspecified Condition: Stable Record reviewed to determine appropriate education?: Yes Instructions: ED Nausea Vomiting
[2022-07-09] MEDS ORDERED: LORazepam 1 MG TABLET PO STA (08:00)
--- NOTE | 2022-07-09 12:49 | ED Physician Documentation ---
ED Addendum - Addendum Addendum: 07/09/22 17:44 Patient is 47-year-old male with longstanding history of fentanyl and m ethamphetamine abuse however received a signout from off going physician. Patient evaluated independently at bedside, found to be resting comfortably and in no acute distress. Subsequently found to be COVID-positive however patient denied any symptoms that would be associated clearly with SARS COVID virus. Evaluated by social work who were unfortunately unable to find him placement in a detox facility. He verbalized understanding of this. He was provided with resources for follow-up on an outpatient basis. Additionally wrote him prescription for Klonopin and Zofran for use at home to help with withdrawal symptoms. He was encouraged to quarantine per current CDC guidelines. Otherwise clear return precautions were given prior to discharge.
[2022-07-09 13:21] VITALS: BP 129/77
== END 2022-07-09 13:24 | disposition home or self-care (01) ==
LOC: EDUNIT# → ED 05:45
DX: U07.1 COVID-19 (principal); F11.13 Opioid abuse with withdrawal; F17.200 Nicotine dependence, unspecified, uncomplicated
CPT/HCPCS: 36415; 80053; 80306; 80320; 81001; 82550; 83690; 83735; 85025; 87635; 96372; 99284; A9270; J0592; J8499; Q0162; 81003; 87086

== ENCOUNTER 2022-08-06 00:12 | Outpatient (CLI) | payer MEDICAID | END 2022-08-06 00:13 | disposition critical access hospital (66) | LOC: EMS 00:12 | DX: R39.89 Other symptoms and signs involving the genitourinary system (principal); Z78.1 Physical restraint status | CPT/HCPCS: A0425; A0429; A0999 ==